=== PATIENT | female | born 1990 | race American Indian/Alaskan Native ===

== ENCOUNTER 2017-04-16 07:16 | Emergency (ER) | payer MEDICAID ==
[2017-04-16 07:30] VITALS: BMI 33.1
[2017-04-16 07:31] VITALS: BP 137/78; PULSE 73; RESP 16; TEMP 98.6; O2SAT 99
--- NOTE | 2017-04-16 08:27 | ED PDOC ---
Lower Extremity Pain/Injury Time Seen by Provider: 04/16/17 07:35 Chief Complaint (Nursing): Lower Extremity Problem/Injury Chief Complaint (Provider): Right first digit pain, swelling, and discharge History Per: Patient History/Exam Limitations: no limitations Onset/Duration Of Symptoms: Days (21 days) Current Symptoms Are (Timing): Still Present Additional Complaint(s): 26 yo female presents to the ED with right first digit pain, swelling, and discharge, onset of 21 days ago. Past Medical History Reviewed: Historical Data, Nursing Documentation, Vital Signs Vital Signs: Last Vital Signs Temp 98.6 F 04/16/17 07:30 Pulse 73 04/16/17 07:30 Resp 16 04/16/17 07:30 BP 137/78 04/16/17 07:30 Pulse Ox 99 04/16/17 07:30 - Medical History PMH: Anxiety Denies: Bipolar Disorder (as per medical record), Depression, HIV, HTN, Chronic Kidney Disease, Seizures, Sexually Transmitted Disease - Surgical History Surgical History: No Surg Hx - Family History Family History: States: Unknown Family Hx - Social History Current smoker - smoking cessation education provided: Yes (light smoker) SMOKER/PACKS PER DAY:: 10 (cigarettes) Alcohol: Social Drugs: Denies - Immunization History Hx Tetanus Toxoid Vaccination: Yes Hx Influenza Vaccination: Yes Hx Pneumococcal Vaccination: No - Home Medications Home Medications: Ambulatory Orders Medication Instructions Recorded Cephalexin [Keflex] 500 mg PO TID #40 capsule 03/15/17 Divalproex [Depakote ER] 500 mg PO DAILY 03/15/17 Dolutegravir Sodium [Tivicay] 50 mg PO DAILY #3 tab 03/15/17 Emtricitabine/Tenofovir Diso 1 tab PO DAILY #3 tab 03/15/17 [Truvada 200 MG-300 MG] Naproxen [Naprosyn] 500 mg PO BID PRN #15 tablet 04/16/17 Sulfamethoxazole/Trimethoprim 1 tab PO BID #14 tab 04/16/17 [Bactrim DS 800 mg-160 mg] - Allergies Allergies/Adverse Reactions: Allergies Allergy/AdvReac Type Severity Reaction Status Date / Time pollen extracts Allergy Mild Verified 03/15/17 09:43 Review of Systems ROS Statement: Except As Marked, All Systems Reviewed And Found Negative Constitutional: Negative for: Fever Musculoskeletal: Positive for: Foot Pain (right first digit) Physical Exam - Reviewed Nursing Documentation Reviewed: Yes Vital Signs Reviewed: Yes - Physical Exam Appears: Positive for: Non-toxic, No Acute Distress Head Exam: Positive for: ATRAUMATIC Skin: Positive for: Normal Color, Warm Eye Exam: Positive for: Normal appearance ENT: Positive for: Normal ENT Inspection Neck: Positive for: Normal Cardiovascular/Chest: Positive for: Regular Rate, Rhythm. Negative for: Murmur Respiratory: Positive for: Normal Breath Sounds. Negative for: Respiratory Distress Back: Positive for: Normal Inspection Extremity: Positive for: Normal ROM, Tenderness, Deformity (right first digit ingrown toe nail laterally), Swelling, Other (no active discharge or bleeidng) Neurologic/Psych: Positive for: Alert, Oriented. Negative for: Motor/Sensory Deficits - ECG O2 Sat by Pulse Oximetry: 99 (RA) Pulse Ox Interpretation: Normal Medical Decision Making Medical Decision Making: Time: --08:18 Impression: --Ingrown toe nail Plan: --ED urine --Ibuprofen 600mg po Podiatry resident states he was called to OR case. Can discharge pt home if stable with antibiotics, to follow-up with Podiatry Clinic on Tuesday (04/18/17) for reevaluation, place surgical shoe. Scribe Attestation: Documented by Regan Cordero acting as a scribe for Karla Lomeli MD. Disposition - Clinical Impression Clinical Impression: Ingrown right big toenail - Disposition Referrals: Podiatry Clinic [Outside] Disposition: Routine/Home Disposition Time: 09:14 Condition: STABLE Additional Instructions: FOLLOW-UP WITH PODIATRY CLINIC ON TUESDAY (04/18/17) FROM 8-12 FOR REEVALUATION. CALL FOR APPOINTMENT. Prescriptions: Naproxen [Naprosyn] 500 mg PO BID PRN #15 tablet PRN Reason: Pain, Moderate (4-7) Sulfamethoxazole/Trimethoprim [Bactrim DS 800 mg-160 mg] 1 tab PO BID #14 tab Instructions: Ingrown Nail (ED) Forms: [employer] (Mongolian)
== END 2017-04-16 09:27 | disposition home or self-care (01) ==
LOC: H.ER 07:16
DX: L60.0 Ingrowing nail (principal); F41.9 Anxiety disorder, unspecified

== ENCOUNTER 2017-06-06 19:50 | Emergency (ER) | payer MEDICAID ==
[2017-06-06 19:50] VITALS: BMI 32.1
[2017-06-06 20:16] VITALS: O2SAT 99
--- NOTE | 2017-06-06 20:39 | ED PDOC ---
HPI: Female Pain Time Seen by Provider: 06/06/17 20:20 Chief Complaint (Nursing): Female Genitourinary Chief Complaint (Provider): vaginal irritation History Per: Patient History/Exam Limitations: no limitations Onset/Duration Of Symptoms: Days (3) Current Symptoms Are (Timing): Still Present Quality Of Discomfort: Burning Additional Complaint(s): 26 y/o female presents with vaginal irritation x 3 days. Patient reports dysuria, vaginal discharge, and itching. Patient states she is homeless and uses a lot of public bathrooms. Patient also noted vaginal spotting 3 days ago , which was different from her usual period. Denies fever, nausea/vomiting, abdominal pain, back pain, hematuria. Patient also requesting test. Past Medical History Reviewed: Historical Data, Nursing Documentation, Vital Signs Vital Signs: Last Vital Signs Temp 99.6 F 06/06/17 20:13 Pulse 88 06/06/17 20:13 Resp 18 06/06/17 20:13 BP 136/54 L 06/06/17 20:13 Pulse Ox 99 06/06/17 20:13 - Medical History PMH: Anxiety Denies: Bipolar Disorder (as per medical record), Depression, HIV, HTN, Chronic Kidney Disease, Seizures, Sexually Transmitted Disease - Surgical History Surgical History: No Surg Hx - Family History Family History: States: Unknown Family Hx - Immunization History Hx Tetanus Toxoid Vaccination: Yes Hx Influenza Vaccination: Yes Hx Pneumococcal Vaccination: No - Home Medications Home Medications: Ambulatory Orders Medication Instructions Recorded Divalproex [Depakote ER] 500 mg PO DAILY 03/15/17 Dolutegravir Sodium [Tivicay] 50 mg PO DAILY #3 tab 03/15/17 Emtricitabine/Tenofovir Diso 1 tab PO DAILY #3 tab 03/15/17 [Truvada 200 MG-300 MG] Cephalexin [Keflex] 500 mg PO QID #40 capsule 04/23/17 - Allergies Allergies/Adverse Reactions: Allergies Allergy/AdvReac Type Severity Reaction Status Date / Time pollen extracts Allergy Mild Verified 04/23/17 09:06 Review of Systems ROS Statement: Except As Marked, All Systems Reviewed And Found Negative Genitourinary Female: Positive for: Dysuria, Vaginal Discharge Physical Exam - Reviewed Nursing Documentation Reviewed: Yes Vital Signs Reviewed: Yes - Physical Exam Appears: Positive for: Well, Non-toxic, No Acute Distress Head Exam: Positive for: ATRAUMATIC, NORMAL INSPECTION, NORMOCEPHALIC Skin: Positive for: Normal Color Eye Exam: Positive for: Normal appearance Cardiovascular/Chest: Positive for: Regular Rate, Rhythm Respiratory: Positive for: Normal Breath Sounds Gastrointestinal/Abdominal: Positive for: Normal Exam, Bowel Sounds, Soft. Negative for: Tenderness Pelvic Exam: Positive for: External Exam Normal, No Cerv. 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 Negative for: Active Bleeding, Blood Back: Positive for: Normal Inspection Extremity: Positive for: Normal ROM Neurologic/Psych: Positive for: Alert, Oriented - Laboratory Results Result Diagrams: 06/06/17 21:20 06/06/17 21:20 - ECG O2 Sat by Pulse Oximetry: 99 - Progress ED Course And Treament: labs, urine, genital cultures, ob tv u/s Patient is requesting prophylactic treatment for STD's after finding out she is Rocephin IM, zithromax PO given. Patient educated on safe sex. EXAM: US , Transvaginal CLINICAL HISTORY: 26 years old, female; Signs and symptoms; Lmp or gestational age (in weeks): Unknown; Other: Spotting; Additional info: ; Vaginal spotting TECHNIQUE: Real-time transvaginal obstetrical ultrasound of the maternal pelvis and a first trimester with image documentation. Transvaginal imaging was used for better evaluation of the fetus and adnexa. COMPARISON: No relevant prior studies available. FINDINGS: Gestation: No intrauterine gestational sac. Uterus/cervix: Endometrium: 1.0 cm in thickness. Closed cervix. Probable nabothian cyst. Ovaries: Normal ovaries. No adnexal masses. Free fluid: No significant free fluid. IMPRESSION: 1. No intrauterine gestation. DDX: Early IUP, missed , ectopic . 2. Incidental/non-acute findings are described above. Patient educated on findings, advised 48 hour follow up. Return precautions given. Disposition - Clinical Impression Clinical Impression: Threatened miscarriage, Concern about STD in female without diagnosis Counseled Patient/Family Regarding: Studies Performed, Diagnosis, Need For Followup - Disposition Referrals: [facility] [Outside] Disposition: Routine/Home Disposition Time: 23:24 Condition: IMPROVED Additional Instructions: Follow up in 48 hours. Take vitamins Return to ED for worsening/concerning symptoms Instructions: Threatened Miscarriage (DC)
[2017-06-06 20:52] LABS: SQUAMOUS EPITHIAL 2 /hpf (0-5); URINE BILIRUBIN NEGATIVE (NEGATIVE); URINE BLOOD NEGATIVE (NEGATIVE); URINE CLARITY SLIGHTY-CLOUDY (Clear); URINE COLOR AMBER (YELLOW); URINE GLUCOSE (UA) NEG (Normal); URINE LEUKOCYTE ESTERASE TRACE Leu/uL (Negative); URINE PROTEIN 30 mg/dL (NEGATIVE)
[2017-06-06] MEDS ORDERED: cefTRIAXone (Rocephin) 250 mg Inj IM ONE (20:55)
[2017-06-06 21:24] LABS: BASO # 0.1 K/uL (0.0-0.2); BASO % 0.8 % (0.0-2.0); EOS # 0.2 K/uL (0.0-0.7); EOS % 1.8 % (0.0-4.0); HEMOGLOBIN 12.6 g/dL (12.0-16.0); LYMPH # 2.3 K/uL (1.0-4.3); LYMPH % 24.6 % (20.0-40.0); MEAN CELL VOLUME 90.2 fl (81.0-99.0); MEAN CORPUSCULAR HEMOGLOBIN 29.8 pg (27.0-31.0); MONO % 10.3 % (0.0-10.0); NEUT # 5.9 K/uL (1.8-7.0); NEUT % 62.5 % (50.0-75.0); RBC 4.22 Mil/uL (3.80-5.20); RED CELL DISTRIBUTION WIDTH 13.7 % (11.5-14.5); WHITE BLOOD COUNT 9.4 K/uL (4.8-10.8)
[2017-06-06 21:35] LABS: ALB/GLOB RATIO 1.1 (1.0-2.1); ALBUMIN 3.8 g/dL (3.5-5.0); ALT/SGPT 53 U/L (9-52); AST/SGOT 65 U/L (14-36); BLOOD UREA NITROGEN 16 mg/dl (7-17); GFR AFRICAN-AMERICAN > 60; GFR NON-AFRICAN AMERICAN > 60
[2017-06-06] MEDS ORDERED: cefTRIAXone (Rocephin) 250 mg Inj ONE (21:55)
--- NOTE | 2017-06-06 22:58 | US ---
EXAM: US , Transvaginal CLINICAL HISTORY: 26 years old, female; Signs and symptoms; Lmp or gestational age (in weeks): Unknown; Other: Spotting; Additional info: ; Vaginal spotting TECHNIQUE: Real-time transvaginal obstetrical ultrasound of the maternal pelvis and a first trimester with image documentation. Transvaginal imaging was used for better evaluation of the fetus and adnexa. COMPARISON: No relevant prior studies available. FINDINGS: Gestation: No intrauterine gestational sac. Uterus/cervix: Endometrium: 1.0 cm in thickness. Closed cervix. Probable nabothian cyst. Ovaries: Normal ovaries. No adnexal masses. Free fluid: No significant free fluid. IMPRESSION: 1. No intrauterine gestation. DDX: Early IUP, missed , ectopic . 2. Incidental/non-acute findings are described above.
[2017-06-06 23:31] VITALS: BP 121/56; PULSE 76; RESP 16; TEMP 98.8
== END 2017-06-07 00:05 | disposition home or self-care (01) ==
LOC: H.ER 19:50
DX: O20.0 Threatened abortion (principal); Z59.0 Homelessness; N89.8 Other specified noninflammatory disorders of vagina; Z11.3 Encounter for screening for infections with a predominantly sexual mode of transmission
CPT/HCPCS: 76817; 80053; 81003; 81025; 84702; 85025; 86850; 86900; 87070; 87086; 87491; 87591; 96372; 99285; J0696

== ENCOUNTER 2017-07-12 20:28 | Emergency (ER) | payer MEDICAID, OTHER ==
[2017-07-12 20:28] VITALS: BMI 30.7
--- NOTE | 2017-07-12 21:29 | ED PDOC ---
HPI: Psych/Substance Abuse Time Seen by Provider: 07/12/17 21:17 Chief Complaint (Nursing): Psychiatric Evaluation Chief Complaint (Provider): Suicidal Ideation History Per: Patient History/Exam Limitations: no limitations Onset/Duration Of Symptoms: Days (x2 weeks) Current Symptoms Are (Timing): Still Present Suicide/Self Injury Attempted (Context): None Associated Symptoms: Depression, Suicidal Thoughts Involuntary Hold By: None Additional Complaint(s): Adalgisa Saavedra is a 26 year old female, with a past medical history of depression , who presents to the emergency department for suicidal ideation onset for x2 weeks. Patient reports she doesn't feel like herself. Patient states she used to take medication for her depression but hasn't recently. Patient also reports a rash and vaginal irritation. She denies any fever, chills, homicidal ideation , auditory or visual hallucinations. No further medical complaints. PMD: None provided Past Medical History Reviewed: Historical Data, Nursing Documentation, Vital Signs Vital Signs: Last Vital Signs Temp 99.4 F 07/12/17 20:40 Pulse 80 07/12/17 20:40 Resp 18 07/12/17 20:40 BP 145/72 07/12/17 20:40 Pulse Ox 99 07/12/17 20:40 - Medical History PMH: Anxiety, Depression, HIV Denies: HTN, Chronic Kidney Disease, Seizures, Sexually Transmitted Disease - Surgical History Surgical History: No Surg Hx - Family History Family History: States: Unknown Family Hx - Immunization History Hx Tetanus Toxoid Vaccination: Yes Hx Influenza Vaccination: Yes Hx Pneumococcal Vaccination: No - Home Medications Home Medications: Ambulatory Orders Medication Instructions Recorded Nitrofurantoin Macrocrystals 100 mg PO BID #14 cap 06/10/17 [Macrobid] - Allergies Allergies/Adverse Reactions: Allergies Allergy/AdvReac Type Severity Reaction Status Date / Time pollen extracts Allergy Mild ITCHING Verified 07/01/17 14:19 Review of Systems ROS Statement: Except As Marked, All Systems Reviewed And Found Negative Constitutional: Negative for: Fever, Chills Genitourinary Female: Positive for: Rash (irritation) Psych: Positive for: Depression, Suicidal ideation (No homicidal ideation). Negative for: Other (hallucinations) Physical Exam - Reviewed Nursing Documentation Reviewed: Yes Vital Signs Reviewed: Yes - Physical Exam Appears: Positive for: Non-toxic, No Acute Distress Head Exam: Positive for: ATRAUMATIC, NORMAL INSPECTION, NORMOCEPHALIC Skin: Positive for: Normal Color, Warm, Dry Eye Exam: Positive for: Normal appearance, EOMI, PERRL Neck: Positive for: Painless ROM Cardiovascular/Chest: Positive for: Regular Rate, Rhythm. Negative for: Murmur Respiratory: Positive for: Normal Breath Sounds. Negative for: Respiratory Distress Gastrointestinal/Abdominal: Positive for: Normal Exam, Soft. Negative for: Tenderness Pelvic Exam: Positive for: External Exam Normal. Negative for: Blood, Discharge Extremity: Positive for: Normal ROM (upper and lower extremities). Negative for : Deformity, Swelling Neurologic/Psych: Positive for: Alert, Oriented. Negative for: Motor/Sensory Deficits - ECG O2 Sat by Pulse Oximetry: 99 (RA) Pulse Ox Interpretation: Normal Medical Decision Making Medical Decision Making: Initial Impression: Suicidal ideation Initial Plan: Crisis evaluation 2229 - Informed that psychiatrist wants urine and urine drug screen. Pt endorsed pending urine and disposition by crisis. ~ Scribe Attestation: Documented by Jevon Corona, acting as a scribe for Kavitha Stewart PA-C. Provider Scribe Attestation: All medical record entries made by the Scribe were at my direction and personally dictated by me. I have reviewed the chart and agree that the record accurately reflects my personal performance of the history, physical exam, medical decision making, and the department course for this patient. I have also personally directed, reviewed, and agree with the discharge instructions and disposition. Disposition - Clinical Impression Clinical Impression: Encounter for psychiatric assessment - Patient ED Disposition Is Patient to be Admitted: Transfer of Care - Disposition Disposition: Transfer of Care Disposition Time: 00:00 Condition: STABLE Forms: [employer] (Spanish)
--- NOTE | 2017-07-13 00:18 | ED PDOC ---
- ECG O2 Sat by Pulse Oximetry: 99 (RA) Medical Decision Making Medical Decision Making: Time: 00:00 --Patient is endorsed to provider from Dr. Brianda Burger. Pending crisis evaluation completion. Time: 412 --Upon crisis evaluation, patient is medically stable and requires no further treatment in the ED at this time as per Dr. Matute. Patient will be discharged home. Counseling was provided and all questions were answered regarding diagnosis. There is agreement to discharge plan. Return if symptoms persist or worsen. Clinical Impression: Substance induced mood disorder Scribe Attestation: Documented by Deepali Davis, acting as a scribe for León Campbell MD. Provider Scribe Attestation: All medical record entries made by the Scribe were at my direction and personally dictated by me. I have reviewed the chart and agree that the record accurately reflects my personal performance of the history, physical exam, medical decision making, and the department course for this patient. I have also personally directed, reviewed, and agree with the discharge instructions and disposition. Disposition Counseled Patient/Family Regarding: Studies Performed, Diagnosis, Need For Followup - Clinical Impression Clinical Impression: Encounter for psychiatric assessment, Substance induced mood disorder - POA Present On Arrival: None - Disposition Disposition: Routine/Home Disposition Time: 04:13 Condition: STABLE Instructions: Polysubstance Abuse Forms: [employer] (German)
[2017-07-13 04:06] VITALS: BP 132/78; PULSE 86; RESP 16; TEMP 98.7
[2017-07-13 04:15] VITALS: O2SAT 99
== END 2017-07-13 04:40 | disposition home or self-care (01) ==
LOC: H.ER 20:28
DX: F19.94 Other psychoactive substance use, unspecified with psychoactive substance-induced mood disorder (principal); F32.9 Major depressive disorder, single episode, unspecified

== ENCOUNTER 2017-07-17 20:52 | Emergency (ER) | payer OTHER ==
[2017-07-17 20:52] VITALS: BMI 30.7
[2017-07-17 20:58] VITALS: RESP 18; O2SAT 99
--- NOTE | 2017-07-17 21:57 | ED PDOC ---
HPI: Female Pain Time Seen by Provider: 07/17/17 20:58 Chief Complaint (Nursing): Abdominal Pain Chief Complaint (Provider): Vaginal irriation History Per: Patient History/Exam Limitations: no limitations Onset/Duration Of Symptoms: Days Current Symptoms Are (Timing): Still Present Additional Complaint(s): 26 yo female presents at 10 weeks and 4 days for evaluation of vaginal irritation. Pt states that she was seen a few days ago and was told she would be given cream but never got Rx. Pt denies vaginal bleeding. Pt states she has not done drugs for 1 week. Pt states she is not sure if she wants to keep the baby but now might, which is why she stopped doing drugs. Pt states she does not know what to do next. Pt does have 2 previous children. Past Medical History Vital Signs: Last Vital Signs Temp 97.8 F 07/17/17 20:55 Pulse 80 07/17/17 20:55 Resp 18 07/17/17 20:55 BP 145/77 07/17/17 20:55 Pulse Ox 99 07/17/17 20:55 - Medical History PMH: Anxiety, Depression, HIV Denies: HTN, Chronic Kidney Disease, Seizures, Sexually Transmitted Disease - Family History Family History: States: Unknown Family Hx - Immunization History Hx Tetanus Toxoid Vaccination: Yes Hx Influenza Vaccination: Yes Hx Pneumococcal Vaccination: No - Home Medications Home Medications: Ambulatory Orders Medication Instructions Recorded Nitrofurantoin Macrocrystals 100 mg PO BID #14 cap 06/10/17 [Macrobid] Miconazole 2% Vaginal [Monistat 7 7 applic VG HS #1 tube 07/17/17 Vaginal Cream] Nitrofurantoin Macrocrystals 100 mg PO BID #10 cap 07/17/17 [Macrobid] - Allergies Allergies/Adverse Reactions: Allergies Allergy/AdvReac Type Severity Reaction Status Date / Time pollen extracts Allergy Mild ITCHING Verified 07/01/17 14:19 Physical Exam - Reviewed Nursing Documentation Reviewed: Yes Vital Signs Reviewed: Yes - Physical Exam Appears: Positive for: Well, Non-toxic, No Acute Distress Head Exam: Positive for: ATRAUMATIC, NORMAL INSPECTION, NORMOCEPHALIC Skin: Positive for: Normal Color, Warm, DRY Eye Exam: Positive for: Normal appearance ENT: Positive for: Normal ENT Inspection Neck: Positive for: Normal, Painless ROM Cardiovascular/Chest: Positive for: Regular Rate, Rhythm Respiratory: Positive for: Normal Breath Sounds. Negative for: Accessory Muscle Use, Respiratory Distress Gastrointestinal/Abdominal: Positive for: Normal Exam, Soft. Negative for: Tenderness Back: Positive for: Normal Inspection Extremity: Positive for: Normal ROM Neurologic/Psych: Positive for: Alert, Oriented - ECG O2 Sat by Pulse Oximetry: 99 Medical Decision Making Medical Decision Making: Discussed vitamins and [facility] f/u. Disposition - Clinical Impression Clinical Impression: UTI in - Patient ED Disposition Is Patient to be Admitted: No Counseled Patient/Family Regarding: Diagnosis, Need For Followup, Rx Given - Disposition Referrals: [facility] [Outside] Disposition: Routine/Home Disposition Time: 23:15 Condition: GOOD Prescriptions: Miconazole 2% Vaginal [Monistat 7 Vaginal Cream] 7 applic VG HS #1 tube Nitrofurantoin Macrocrystals [Macrobid] 100 mg PO BID #10 cap Instructions: Urinary Tract Infection, Adult (DC) Forms: [employer] (Kittitian)
[2017-07-17 22:06] LABS: SQUAMOUS EPITHIAL 8 /hpf (0-5); URINE BACTERIA RARE (<OCC); URINE BILIRUBIN NEGATIVE (NEGATIVE); URINE BLOOD NEGATIVE (NEGATIVE); URINE CLARITY CLOUDY (Clear); URINE COLOR YELLOW (YELLOW); URINE GLUCOSE (UA) 50 mg/dL (Normal); URINE LEUKOCYTE ESTERASE MOD Leu/uL (Negative); URINE PROTEIN NEGATIVE (NEGATIVE); URINE UROBILINOGEN 0.2-1.0 mg/dL (0.2-1.0)
[2017-07-17 22:24] LABS: BARBITURATES, UR NEGATIVE (NEGATIVE); BENZODIAZEPINES, UR NEGATIVE (NEGATIVE); OPIATES, UR NEGATIVE (NEGATIVE); PHENCYCLIDINE, UR POSITIVE (NEGATIVE)
[2017-07-18 05:56] VITALS: BP 132/74; PULSE 88; TEMP 98.2
== END 2017-07-17 23:55 | disposition home or self-care (01) ==
LOC: H.ER 20:52
DX: O23.41 Unspecified infection of urinary tract in pregnancy, first trimester (principal); Z3A.10 10 weeks gestation of pregnancy

== ENCOUNTER 2017-08-10 18:40 | Emergency (ER) | payer OTHER ==
[2017-08-10 18:40] VITALS: BMI 30.7
[2017-08-10 18:47] VITALS: BP 126/79; PULSE 94; RESP 16; TEMP 98.9; O2SAT 100
--- NOTE | 2017-08-10 19:20 | ED PDOC ---
HPI: Psych/Substance Abuse Time Seen by Provider: 08/10/17 18:48 Chief Complaint (Nursing): Alcohol Ingestion Chief Complaint (Provider): intoxication Involuntary Hold By: Local Law Enforcement Additional Complaint(s): Brought in by Krissy LARSEN for medical and psychiatric clearance. Arrested for trespassing and having open warrants. Intoxicated, reportedly drinking beers. Offers no complaints at this time. Denies homicidal or suicidal ideation Past Medical History Reviewed: Historical Data, Nursing Documentation, Vital Signs Vital Signs: Last Vital Signs Temp 98.9 F 08/10/17 18:43 Pulse 94 H 08/10/17 18:43 Resp 16 08/10/17 18:43 BP 126/79 08/10/17 18:43 Pulse Ox 100 08/10/17 18:43 - Medical History PMH: Anxiety, Depression, HIV Denies: HTN, Chronic Kidney Disease, Seizures, Sexually Transmitted Disease - Family History Family History: States: Unknown Family Hx - Social History Drugs: Cannabis, Cocaine, Other (PCP) - Immunization History Hx Tetanus Toxoid Vaccination: Yes Hx Influenza Vaccination: Yes Hx Pneumococcal Vaccination: No - Home Medications Home Medications: Ambulatory Orders Medication Instructions Recorded Nitrofurantoin Macrocrystals 100 mg PO BID #14 cap 06/10/17 [Macrobid] Miconazole 2% Vaginal [Monistat 7 7 applic VG HS #1 tube 07/17/17 Vaginal Cream] Nitrofurantoin Macrocrystals 100 mg PO BID #10 cap 07/17/17 [Macrobid] Multivit/Folic Acid/I 1 tab PO DAILY #100 tab 08/10/17 [ Plus] - Allergies Allergies/Adverse Reactions: Allergies Allergy/AdvReac Type Severity Reaction Status Date / Time pollen extracts Allergy Mild ITCHING Verified 08/10/17 18:43 Review of Systems ROS Statement: Except As Marked, All Systems Reviewed And Found Negative (and as per HPI) Psych: Positive for: Depression Physical Exam - Reviewed Nursing Documentation Reviewed: Yes Vital Signs Reviewed: Yes - Physical Exam Appears: Positive for: In Acute Distress (psychiatric distress, sad and tearful) Head Exam: Positive for: ATRAUMATIC, NORMOCEPHALIC Skin: Positive for: Warm, Dry Eye Exam: Positive for: EOMI, PERRL Neck: Positive for: Painless ROM, Supple Cardiovascular/Chest: Positive for: Regular Rate, Rhythm. Negative for: Murmur Respiratory: Positive for: Normal Breath Sounds. Negative for: Wheezing Gastrointestinal/Abdominal: Positive for: Soft. Negative for: Distended Back: Positive for: Normal Inspection. Negative for: Decreased ROM Extremity: Positive for: Normal ROM. Negative for: Deformity Lymphatic: Negative for: Adenopathy Neurologic/Psych: Positive for: Alert. Negative for: Motor/Sensory Deficits - ECG O2 Sat by Pulse Oximetry: 100 - Progress ED Course And Treament: Pt calm and cooperative on my evaluation. Became agitated when police returned to room but the calm again during evaluation by [employer] [place]. Pt psychiatrically stable for incarceration after evaluation. Urine test positive. Will need outpatient care. Medically stable for incarceration. Disposition - Clinical Impression Clinical Impression: Substance induced mood disorder, - Disposition Referrals: [facility] [Outside] Disposition: Discharged/Transfer to Law Enforcement Disposition Time: 20:24 Condition: STABLE Additional Instructions: MEDICALLY AND PSYCHIATRICALLY STABLE FOR INCARCERATION Prescriptions: Multivit/Folic Acid/I [ Plus] 1 tab PO DAILY #100 tab Instructions: Drug Abuse and Drug Addiction (DC), - The Third Month
== END 2017-08-10 20:55 ==
LOC: H.ER 18:40
DX: F19.94 Other psychoactive substance use, unspecified with psychoactive substance-induced mood disorder (principal); Z33.1 Pregnant state, incidental; Z86.59 Personal history of other mental and behavioral disorders; Z00.8 Encounter for other general examination; Z02.89 Encounter for other administrative examinations

== ENCOUNTER 2017-09-30 03:02 | Emergency (ER) | payer MEDICAID, OTHER ==
[2017-09-30 03:03] VITALS: BMI 30.7
[2017-09-30 03:32] VITALS: BP 102/62; PULSE 82; RESP 16; TEMP 98.2; O2SAT 100
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
[2017-09-30 05:17] LABS: SQUAMOUS EPITHIAL 7 /hpf (0-5); URINE BILIRUBIN NEGATIVE (NEGATIVE); URINE BLOOD NEGATIVE (NEGATIVE); URINE CLARITY CLOUDY (Clear); URINE COLOR YELLOW (YELLOW); URINE GLUCOSE (UA) NEG (Normal); URINE LEUKOCYTE ESTERASE TRACE Leu/uL (Negative); URINE PROTEIN 30 mg/dL (NEGATIVE)
== END 2017-09-30 09:35 | disposition home or self-care (01) ==
LOC: H.ER 03:02
DX: O26.892 Other specified pregnancy related conditions, second trimester (principal); Y04.0XXA Assault by unarmed brawl or fight, initial encounter; Y92.830 Public park as the place of occurrence of the external cause; O23.42 Unspecified infection of urinary tract in pregnancy, second trimester; O12.02 Gestational edema, second trimester; Z3A.20 20 weeks gestation of pregnancy

== ENCOUNTER → 2017-10-16 | Emergency (ER) | payer MEDICAID, OTHER ==
[2017-10-16 15:24] VITALS: BMI 26.6
--- NOTE | 2017-10-16 16:39 | US ---
Date of service: 10/16/2017 PROCEDURE: Limited obstetrical ultrasound examination HISTORY: dating US/Gestational Age and Placental placement COMPARISON: Not available TECHNIQUE: Transabdominal FINDINGS: The examination demonstrates a single live intrauterine gestation in breech presentation. The heart rate is 142 beats per minute. An anterior placenta is noted. There is no evidence placenta previa. The cervix is closed and measures 4.4 cm in length. biometry yields a gestational age of 22 weeks 4 days. The SERA by ultrasound is 02/15/2018. The EFW is 488.18 g. Neither the right nor the left ovary are visualized. IMPRESSION: Single live intrauterine gestation of approximately 22 weeks 4 days gestational age. heart rate 142. Cervix closed. Anterior placenta. No previa. Breech presentation.
[2017-10-16 23:52] VITALS: BP 115/57; PULSE 74; O2SAT 100
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
== END | disposition home or self-care (01) ==
LOC: H.EROB2 14:22
DX: O26.92 Pregnancy related conditions, unspecified, second trimester (principal); R10.2 Pelvic and perineal pain; R30.0 Dysuria; N89.8 Other specified noninflammatory disorders of vagina; Z3A.22 22 weeks gestation of pregnancy

== ENCOUNTER 2017-12-21 19:46 | Emergency (ER) | payer OTHER ==
[2017-12-21 19:47] VITALS: BMI 30.4
[2017-12-21 20:10] VITALS: BP 112/78; PULSE 80; RESP 16; TEMP 98.8; O2SAT 100
--- NOTE | 2017-12-21 21:09 | ED PDOC ---
HPI: CCC, URI, Sore Throat Time Seen by Provider: 12/21/17 20:11 Chief Complaint (Nursing): ENT Problem Chief Complaint (Provider): Cough, Congestion, Sore Throat History Per: Patient History/Exam Limitations: no limitations Onset/Duration Of Symptoms: Days (x1 week) Current Symptoms Are (Timing): Still Present Additional Complaint(s): 27 year old female, 32 weeks , presents to the ED for evaluation of cough, nasal congestion, and sore throat for the last week. For the past two weeks, pt notes a rash on her neck and face which goes away with antiseptic wipe s. Otherwise denies chest pain, SOB, fever, abdominal pain, vaginal bleeding, sick contact, and recent travel. PMD: none provided Past Medical History Reviewed: Historical Data, Nursing Documentation, Vital Signs Vital Signs: Last Vital Signs Temp 98.8 F 12/21/17 20:05 Pulse 80 12/21/17 20:05 Resp 16 12/21/17 20:05 BP 112/78 12/21/17 20:05 Pulse Ox 100 12/21/17 20:05 - Medical History PMH: Anxiety, Depression, HIV, Sexually Transmitted Disease (HIV) Denies: Diabetes, Chronic Kidney Disease, Seizures - Surgical History Surgical History: No Surg Hx - Family History Family History: States: Unknown Family Hx - Social History Current smoker - smoking cessation education provided: No Alcohol: None Drugs: Denies - Immunization History Hx Tetanus Toxoid Vaccination: Yes Hx Influenza Vaccination: Yes Hx Pneumococcal Vaccination: No - Home Medications Home Medications: Ambulatory Orders Medication Instructions Recorded Dolutegravir Sodium [Tivicay] 50 mg PO DAILY #3 tab 10/19/17 Emtricitabine/Tenofovir (Tdf) 1 each PO DAILY #3 tablet 10/19/17 [Truvada 200 mg-300 mg Tablet] Miconazole 2% [Miconazole 2% Cream] 1 ea EXT BID #1 tube 10/19/17 Acetaminophen [Tylenol 325mg tab] 650 mg PO Q4 PRN #12 tab 12/21/17 Sodium Chloride [Saline Nasal Mist] 2 - 4 spray NS Q2 PRN #1 bottle 12/21/17 - Allergies Allergies/Adverse Reactions: Allergies Allergy/AdvReac Type Severity Reaction Status Date / Time pollen extracts Allergy Mild ITCHING Verified 10/19/17 15:39 haloperidol [From Haldol] Allergy ITCHING Verified 10/19/17 15:39 nitrofurantoin Allergy SWELLING Verified 10/19/17 15:39 [From Macrobid] Review of Systems ROS Statement: Except As Marked, All Systems Reviewed And Found Negative Constitutional: Negative for: Fever ENT: Positive for: Nose Congestion, Throat Pain Respiratory: Positive for: Cough Gastrointestinal: Negative for: Abdominal Pain Genitourinary Female: Negative for: Vaginal Bleeding Skin: Positive for: Rash (on face and neck) Physical Exam - Reviewed Nursing Documentation Reviewed: Yes Vital Signs Reviewed: Yes - Physical Exam Appears: Positive for: No Acute Distress Head Exam: Positive for: ATRAUMATIC, NORMOCEPHALIC Skin: Positive for: Normal Color. Negative for: Rash Eye Exam: Positive for: Normal appearance ENT: Positive for: Normal ENT Inspection. Negative for: Pharyngeal Erythema, Tonsillar Exudate, Tonsillar Swelling, Other (strawberry or sandpaper tongue) Cardiovascular/Chest: Positive for: Regular Rate, Rhythm Respiratory: Positive for: Normal Breath Sounds. Negative for: Accessory Muscle Use, Respiratory Distress Gastrointestinal/Abdominal: Positive for: Normal Exam, Other (gravid). Negative for: Tenderness Neurologic/Psych: Positive for: Alert, Oriented (x3) - ECG O2 Sat by Pulse Oximetry: 100 (RA) Pulse Ox Interpretation: Normal Medical Decision Making Medical Decision Making: Time: 2019 Initial Impression: URI vs strep Initial Plan: --Tylenol 975mg PO --Throat culture --Rapid strep Scribe Attestation: Documented by Cristina Clement, acting as a scribe for Rudy Osuna PA-C Provider Scribe Attestation: All medical record entries made by the Scribe were at my direction and personally dictated by me. I have reviewed the chart and agree that the record accurately reflects my personal performance of the history, physical exam, medical decision making, and the department course for this patient. I have also personally directed, reviewed, and agree with the discharge instructions and disposition. Disposition - Clinical Impression Clinical Impression: Upper respiratory infection - Patient ED Disposition Is Patient to be Admitted: No - Disposition Referrals: [facility] [Outside] [facility] [Outside] Disposition: Routine/Home Disposition Time: 21:00 Condition: STABLE Additional Instructions: AICHA VENTURA, thank you for letting us take care of you today. Your provider was Apolonia Harris MD and you were treated for SORE THROAT, COUGH, RASH 32 WKS PREG. The emergency medical care you received today was directed at your acute symptoms. If you were prescribed any medication, please fill it and take as directed. It may take several days for your symptoms to resolve. Return to the Emergency Department if your symptoms worsen, do not improve, or if you have any other problems. Please contact your doctor or call one of the physicians/clinics you have been referred to that are listed on the Patient Visit Information form that is included in your discharge packet. Bring any paperwork you were given at discharge with you along with any medications you are taking to your follow up visit. Our treatment cannot replace ongoing medical care by a primary care provider outside of the emergency department. Thank you for allowing the [facility] team to be part of your care today. If you had an X-Ray or CT scan: A Radiologist will review the ED reading if any change in treatment is needed we will contact you. If you had a blood, urine, or wound culture: It will take several days for the results, if any change in treatment is needed we will contact you. If you had an STI test: It will take 48 hours for the results. Please call after 1 week if you have not heard back. Prescriptions: Acetaminophen [Tylenol 325mg tab] 650 mg PO Q4 PRN #12 tab PRN Reason: fever or pain Sodium Chloride [Saline Nasal Mist] 2 - 4 spray NS Q2 PRN #1 bottle PRN Reason: Nasal Congestion Instructions: Viral Upper Respiratory Infection, Adult (DC) Forms: [employer] (Chadian) Print Language: GERMAN
== END 2017-12-21 21:26 | disposition home or self-care (01) ==
LOC: H.ER 19:46
DX: J06.9 Acute upper respiratory infection, unspecified (principal); R21 Rash and other nonspecific skin eruption; Z33.1 Pregnant state, incidental

== ENCOUNTER 2018-06-26 05:27 | Emergency (ER) | payer MEDICAID, OTHER ==
[2018-06-26 05:28] VITALS: BMI 25.9
[2018-06-26 05:47] VITALS: BP 134/82; PULSE 92; RESP 16; TEMP 98.8; O2SAT 99
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
--- NOTE | 2018-06-26 07:50 | ED PDOC ---
- ECG O2 Sat by Pulse Oximetry: 99 (RA) Pulse Ox Interpretation: Normal Medical Decision Making Medical Decision Makin:00 Patient was signed out to me from Dr. Apolonia Harris at this time pending urine preg, labs, and final disposition. At sign out I reassessed patient at bedside, who is resting comfortably in stretcher. Vital signs stable. 9:45 Informed by RN that patient is refusing all lab work. Patient advised that labs are necessary in order to assess for ED intervention and treatment. Patient refuses to have labs done, and chooses to sign out AMA. All risks were explained in detail to patient. Scribe Attestation: Documented by Rani Muir, acting as a scribe for Sowmya Rodriguez MD. Provider Scribe Attestation: All medical record entries made by the Scribe were at my direction and personally dictated by me. I have reviewed the chart and agree that the record accurately reflects my personal performance of the history, physical exam, medical decision making, and the department course for this patient. I have also personally directed, reviewed, and agree with the discharge instructions and disposition. Disposition - Clinical Impression Clinical Impression: Abdominal pain in female, Left against medical advice - POA Present On Arrival: None - Disposition Referrals: [facility] [Outside] Disposition: AGAINST MEDICAL ADVICE Disposition Time: 09:45 Condition: IMPROVED Instructions: Leaving Against Medical Advice Against Medical Advice - AMA Patient Left Against Medical Advice: The patient declines further testing in the hospital and wishes to leave the Emergency Department. This action is against my medical advice. This decision was made with informed refusal. The patient was told that labs are necessary. Explanation of the reasons why were discussed. The risks of leaving were explained to the patient and include, but are not limited to, worsening of known or currently unknown conditions, permanent disability and from undiagnosed or untreated conditions. The patient has the capacity to make this informed decision and understands my explanation of the current medical problem and risks of leaving. The patient voluntarily accepts these risks and signed an AMA form documenting our conversation. The patient was given the opportunity to ask questions and reconsider. The patient was encouraged to return to the Emergency Department at any time for further care.
== END 2018-06-26 09:49 | disposition left against medical advice (07) ==
LOC: H.ER 05:27
DX: R10.9 Unspecified abdominal pain (principal)

== ENCOUNTER 2018-08-05 07:05 | Emergency (ER) | payer MEDICAID ==
[2018-08-05 07:07] VITALS: BMI 21.6
[2018-08-05 07:08] VITALS: RESP 18; TEMP 97.8
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
[2018-08-05 09:59] VITALS: BP 117/73; PULSE 81; O2SAT 99
== END 2018-08-05 10:20 ==
LOC: H.ER 07:05 → MERGE 07:05 → H.ER 10:20
DX: F43.20 Adjustment disorder, unspecified (principal); F17.210 Nicotine dependence, cigarettes, uncomplicated